=== PATIENT | male | born 1985 | race Caucasian/White ===

== ENCOUNTER 2021-12-02 09:00 | Emergency (ER) | payer OTHER ==
[2021-12-02] MEDS ORDERED: Boostrix 0.5 ML (Tdap) VIAL ONE (09:26)
== END 2021-12-02 09:38 | disposition home or self-care (01) ==
LOC: BURERS 09:00
DX: S81.852A Open bite, left lower leg, initial encounter (principal); W54.0XXA Bitten by dog, initial encounter; Z23 Encounter for immunization
CPT/HCPCS: 90471; 90715